=== PATIENT | male | born 1950 | race Caucasian/White ===

== ENCOUNTER 2016-09-27 12:57 | Emergency (ER) | payer MEDICARE ==
[~2016-09-27] VITALS: Ht 185.4 cm; Wt 109.9 kg
[2016-09-27] MEDS ORDERED: SODIUM CHLORIDE FLUSH 10ML SYR IVF ONE (13:30)
[2016-09-27 14:23] LABS: HEMOGLOBIN 13.5 g/dL (13.7-18.0)
[2016-09-27 14:31] LABS: BLOOD UREA NITROGEN 27 mg/dL (7-18)
[2016-09-27 15:27] VITALS: BP 131/53
== END 2016-09-27 15:34 | disposition home or self-care (01) ==
LOC: ED 15:28
DX: I82.5Z2 Chronic embolism and thrombosis of unspecified deep veins of left distal lower extremity (principal); I82.4Y1 Acute embolism and thrombosis of unspecified deep veins of right proximal lower extremity; I10 Essential (primary) hypertension; E11.9 Type 2 diabetes mellitus without complications; I51.9 Heart disease, unspecified
CPT/HCPCS: 36415; 80048; 82040; 85025; 85610; 85730; 93970

== ENCOUNTER → 2016-09-27 | Outpatient (CLI) | payer MEDICARE ==
[~2016-09-27] MED LIST: AMLO10TA2 PO; ATEN50TA41 PO; ATOR40TA78 PO; FENO48TA5 PO; HUM100VI6 SQ; LISI-170 PO; METF10002 PO; OMEP40CA6 PO; PREDNISONE
== END | disposition home or self-care (01) ==
LOC: CVU 10:57
PROVIDERS: ATTEND Nurse Practitioner Family
DX: I87.2 Venous insufficiency (chronic) (peripheral) (principal)
CPT/HCPCS: 93970

== ENCOUNTER → 2016-10-13 | Outpatient (CLI) | payer MEDICARE | END | disposition home or self-care (01) | LOC: CFH 07:08 | PROVIDERS: ATTEND Internal Medicine Gastroenterology | DX: K76.0 Fatty (change of) liver, not elsewhere classified (principal); N19 Unspecified kidney failure; E11.9 Type 2 diabetes mellitus without complications; E78.00 Pure hypercholesterolemia, unspecified; K21.9 Gastro-esophageal reflux disease without esophagitis; Z79.01 Long term (current) use of anticoagulants | CPT/HCPCS: 76700 ==

== ENCOUNTER 2017-03-02 06:52 | Observation (INO) | payer MEDICARE ==
[~2017-03-02] VITALS: Ht 182.9 cm; Wt 110.6 kg
[~2017-03-02 06:52] MED LIST changes: +BACITRACIN 50,000 UNIT ONE; +BUPIVACAINE/PF 0.5% ONE; +EPINEPHRINE 1 MG/ML, 1ML ONE; +THROMBIN 5,000 UNIT VIAL TP ONE; +VANCOMYCIN 1,000 MG ONE
[2017-03-02] MEDS ORDERED: LACTATED RINGERS 1,000 ML IV SCH (07:24)
[2017-03-02] MEDS ORDERED: LIDOCAINE 1%, 2ML ONE (07:25)
[2017-03-02] MEDS ORDERED: APIX5TAB PO (07:27)
[2017-03-02 07:29] VITALS: BP 175/78
[2017-03-02] MEDS ORDERED: LIDOCAINE 1%, 2ML SQ PRN (07:30)
[2017-03-02] MEDS ORDERED: LORazepam 2 MG/ML, 1ML IVPush STA (09:06)
[2017-03-02] MEDS ORDERED: LORazepam 2 MG/ML, 1ML ONE (09:13)
[2017-03-02] MEDS ORDERED: FENTANYL PF 100 MCG/2ML ONE ×2 (11:03)
[2017-03-02] MEDS ORDERED: MIDAZOLAM 1 MG/ML, 2ML ONE (11:03)
[2017-03-02] MEDS ORDERED: PROPOFOL 10 MG/ML, 20ML ONE (11:14)
[2017-03-02] MEDS ORDERED: CEFAZOLIN 1,000 MG ONE (11:14)
[2017-03-02] MEDS ORDERED: NEOSTIGMINE 1 MG/ML, 10ML ONE (11:14)
[2017-03-02] MEDS ORDERED: ONDANSETRON 2MG/ML, 2ML ONE (11:14)
[2017-03-02] MEDS ORDERED: ROCURONIUM 10 MG/ML ONE (11:14)
[2017-03-02] MEDS ORDERED: DEXAMETHASONE 4 MG/ML, 1ML ONE (11:14)
[2017-03-02] MEDS ORDERED: BUPIVACAINE/PF 0.5% INFIL ONE (11:46)
[2017-03-02] MEDS ORDERED: EPINEPHRINE 1 MG/ML, 1ML INFIL ONE (11:46)
[2017-03-02] MEDS ORDERED: FENTANYL PF 100 MCG/2ML IV PRN (12:00)
[2017-03-02] MEDS ORDERED: hydrALAzine 20 MG/ML, 1ML IV PRN (12:00)
[2017-03-02] MEDS ORDERED: ACETAMINOPHEN 325 MG TABLET PO PRN (12:00)
[2017-03-02] MEDS ORDERED: ONDANSETRON 2MG/ML, 2ML IVPush PRN (12:00)
[2017-03-02] MEDS ORDERED: MIDAZOLAM 1 MG/ML, 2ML IV PRN (12:00)
[2017-03-02] MEDS ORDERED: PROMETHAZINE 25 MG/ML, 1ML IV PRN (12:00)
[2017-03-02] MEDS ORDERED: OXYcodone 5 MG/5 ML ORAL.SOL UDC PO PRN (12:00)
[2017-03-02] MEDS ORDERED: HYDROmorphone 1 MG/ML, 1ML IV PRN (12:00)
[2017-03-02] MEDS ORDERED: MEPERIDINE/PF 25MG/0.5ML IVPush PRN (12:00)
[2017-03-02] MEDS ORDERED: HYDROmorphone PCA 30 MG/30 ML ONE (13:13)
[2017-03-02] MEDS ORDERED: HYDROmorphone PCA 30 MG/30 ML IV PRN (13:30)
[2017-03-02] MEDS ORDERED: LABETALOL 5MG/ML, 20ML ONE (13:57)
[2017-03-02] MEDS: LABETALOL 5MG/ML, 20ML IV PRN ×2 (13:59→14:06)
[2017-03-02] MEDS: INSULIN REGULAR 100 UNITS/ML, 3ML VIAL SQ-INSULIN SCH ×2 (14:13→14:15)
[2017-03-02] MEDS ORDERED: BISACODYL 10 MG SUPP PR PRN (15:30)
[2017-03-02] MEDS ORDERED: HYDROcodone/APAP 5/325 TABLET PO PRN (15:30)
[2017-03-02] MEDS ORDERED: morphine SULFATE 10 MG/ML, 1ML IV PRN (15:30)
[2017-03-02] MEDS ORDERED: DIPHENHYDRAMINE 50 MG/ML, 1ML IVPush PRN (15:30)
[2017-03-02] MEDS ORDERED: DIAZEPAM 5 MG/ML, 2ML IV PRN (15:30)
[2017-03-02] MEDS ORDERED: DIPHENHYDRAMINE 25 MG CAPSULE PO PRN (15:30)
[2017-03-02] MEDS ORDERED: MAGNESIUM HYDROXIDE 8%, 30ML UDC PO PRN (15:30)
[2017-03-02] MEDS ORDERED: DIAZEPAM 5 MG TABLET PO PRN (15:30)
[2017-03-02] MEDS ORDERED: ONDANSETRON 2MG/ML, 2ML IV PRN (15:30)
[2017-03-02] MEDS: NS + 20MEQ KCL 1,000 ML IV SCH (17:19)
[2017-03-02] MEDS: CEFAZOLIN PMX 1GM/50ML 50 ML IVPB SCH (18:24)
[2017-03-02] MEDS: OXYcodone/APAP 5/325MG TABLET PO PRN (20:19)
[2017-03-02 20:20] VITALS: BP 146/73
[2017-03-02] MEDS ORDERED: ATORVASTATIN 40 MG TABLET PO SCH (21:00)
[2017-03-02] MEDS: INSULIN HUMULIN 70/30, 3ML PEN SQ-INSULIN SCH (22:54)
[2017-03-03] MEDS: OXYcodone/APAP 5/325MG TABLET PO PRN ×3 (00:17→10:10)
[2017-03-03 00:32] VITALS: BP 144/69
[2017-03-03] MEDS: CEFAZOLIN PMX 1GM/50ML 50 ML IVPB SCH (03:26)
[2017-03-03] MEDS: NS + 20MEQ KCL 1,000 ML IV SCH (04:00)
[2017-03-03] MEDS ORDERED: ATENOLOL 50 MG TABLET PO SCH (06:00)
[2017-03-03] MEDS ORDERED: OMEPRAZOLE 20 MG CAPSULE.DR PO SCH (07:30)
[2017-03-03 07:44] VITALS: BP 127/65
[2017-03-03] MEDS ORDERED: metFORMIN XR 500 MG TAB.ER.24H PO SCH (08:00)
[2017-03-03] MEDS ORDERED: FENOFIBRATE 54 MG TABLET PO SCH (09:00)
[2017-03-03] MEDS ORDERED: LISINOPRIL 20 MG TABLET PO SCH (09:00)
[2017-03-03] MEDS ORDERED: SENNA/DOCUSATE TABLET PO SCH (09:00)
[2017-03-03] MEDS ORDERED: AMLODIPINE 5 MG TABLET PO SCH (09:00)
[2017-03-03] MEDS ORDERED: OXYC1TAB7 PO (09:18)
[2017-03-03] MEDS ORDERED: TIZA4TAB PO (09:18)
[2017-03-03] MEDS ORDERED: TIZANIDINE 4MG TABLET PO SCH (09:30)
[2017-03-03] MEDS: INSULIN HUMULIN 70/30, 3ML PEN SQ-INSULIN SCH (10:13)
== END 2017-03-03 14:03 | disposition home or self-care (01) ==
LOC: OUT 06:52 → 4NOR 14:48 → OUT 22:45 → 4NOR 22:46 → DCLOUNGE 03-03 13:48
PROVIDERS: ADMIT Neurological Surgery; ATTEND Neurological Surgery
DX: M48.06 Spinal stenosis, lumbar region (principal); M54.16 Radiculopathy, lumbar region; M46.90 Unspecified inflammatory spondylopathy, site unspecified; M12.9 Arthropathy, unspecified
CPT/HCPCS: 22867; 36415; 72100; 82962; 85610; 85730; 96365; 96372; 96375; 97162; 97165; C1776; G0378; J0171; J0690; J1100; J1170; J1815; J2060; J2250; J2405; J2704; J2710; J3010; J3480; J3490; J7120; J3370

== ENCOUNTER → 2017-04-08 | Outpatient (CLI) | payer MEDICARE ==
[~2017-04-08] MED LIST changes: +APIX5TAB PO; -BACITRACIN 50,000 UNIT ONE; -BUPIVACAINE/PF 0.5% ONE; -EPINEPHRINE 1 MG/ML, 1ML ONE; +OXYC1TAB7 PO; -THROMBIN 5,000 UNIT VIAL TP ONE; +TIZA4TAB PO; -VANCOMYCIN 1,000 MG ONE
== END | disposition home or self-care (01) ==
LOC: CFH 07:38
PROVIDERS: ATTEND Neurological Surgery
DX: M48.07 Spinal stenosis, lumbosacral region (principal); M47.897 Other spondylosis, lumbosacral region; M25.78 Osteophyte, vertebrae; Z98.1 Arthrodesis status
CPT/HCPCS: 72100

== ENCOUNTER 2017-10-26 14:01 | Inpatient (IN) | payer MEDICARE ==
[~2017-10-26] VITALS: Ht 182.9 cm; Wt 112.6 kg
[2017-10-26] MEDS ORDERED: SODIUM CHLORIDE FLUSH 10ML SYR IVF ONE (14:30)
[2017-10-26] MEDS ORDERED: TRAZ100T15 PO (15:01)
[2017-10-26] MEDS ORDERED: APIX5TAB PO (15:01)
[2017-10-26] MEDS ORDERED: OMEP40CA6 PO (15:02)
[2017-10-26] MEDS ORDERED: CHOL2000 PO (15:03)
[2017-10-26 15:59] LABS: BASOPHILS # (AUTO) 0.04 x10^3/uL (0-0.1); BASOPHILS % (AUTO) 1 % (0-1); EOSINOPHILS # (AUTO) 0.03 x10^3/uL (0-0.4); EOSINOPHILS % (AUTO) 0 % (1-7); LYMPHOCYTES % (AUTO) 8 % (22-44); MD NO; MEAN CORPUSCULAR HEMOGLOBIN 31.3 pg (27.5-34.5); MEAN CORPUSCULAR HGB CONC 34.4 g/dL (33.2-36.2); MEAN CORPUSCULAR VOLUME 91.3 fL (81-97); MONOCYTES # (AUTO) 0.47 x10^3/uL (0.2-0.8); MONOCYTES % (AUTO) 6 % (2-9); NEUTROPHILS # (AUTO) 7.35 x10^3/uL (1.8-6.8); NEUTROPHILS % (AUTO) 86 % (42-75); PLATELET COUNT 171 x10^3/uL (130-400); RED BLOOD COUNT 4.66 x10^6/uL (4.38-5.82); RED CELL DISTRIBUTION WIDTH 13.9 % (9.4-14.8)
[2017-10-26 16:02] LABS: INTERNATIONAL NORMALIZED RATIO 1.06 (0.93-1.1)
[2017-10-26 16:06] LABS: ALBUMIN 3.9 g/dL (3.4-5.0); ANION GAP 6 mmol/L (5-15); CALCIUM 8.6 mg/dL (8.5-10.1); CHLORIDE 109 mmol/L (98-107)
[2017-10-26 16:13] LABS: ALANINE AMINOTRANSFERASE 75 U/L (12-78); ALKALINE PHOSPHATASE 40 U/L (45-117); BILIRUBIN,TOTAL 0.6 mg/dL (0.2-1.0); CREATININE 1.99 mg/dL (0.7-1.3); TOTAL PROTEIN 7.5 g/dL (6.4-8.2); TROPONIN I 0.087 ng/mL (0.000-0.045)
[2017-10-26] MEDS: SODIUM CHLORIDE 0.9% 1,000 ML IV SCH ×2 (17:10→21:38)
[2017-10-26] MEDS ORDERED: GADOBUTROL 10 MMOL/10 ML PFS ONE (17:28)
[2017-10-26] MEDS ORDERED: ONDANSETRON 2MG/ML, 2ML IVPush PRN (17:30)
[2017-10-26] MEDS ORDERED: HEPARIN 5,000 UNITS/ML, 1ML SQ SCH (17:30)
[2017-10-26] MEDS ORDERED: NITROGLYCERIN 0.4 MG BOTTLE (25 TABS) SL PRN (17:30)
[2017-10-26] MEDS ORDERED: LABETALOL 5MG/ML, 20ML IVPush PRN (17:30)
[2017-10-26 17:47] LABS: FREE T4 (FREE THYROXINE) 0.94 ng/dL (0.76-1.46)
[2017-10-26] MEDS ORDERED: OXYcodone/APAP 5/325MG TABLET PO PRN (18:00)
[2017-10-26] MEDS ORDERED: DEXTROSE 50%, 50ML SYRINGE IVPush PRN (18:30)
[2017-10-26] MEDS ORDERED: LEVETIRACETAM 100 MG/ML, 5ML IV SCH (18:30)
[2017-10-26] MEDS ORDERED: ASPIRIN 81 MG TABLET EC PO SCH (18:30)
[2017-10-26] MEDS ORDERED: GLUCAGON 1 MG IM PRN (18:30)
[2017-10-26] MEDS ORDERED: DEXTROSE 4 GM TAB.CHEW PO PRN (18:30)
[2017-10-26 18:54] LABS: HEMOGLOBIN A1C 7.6 % (4.2-6.3)
[2017-10-26 19:02] LABS: CHOL/HDL RATIO 6.7; LDL/HDL RATIO 2.4 (0.5-3.0)
[2017-10-26 19:31] LABS: TROPONIN I 0.224 ng/mL (0.000-0.045)
[2017-10-26 19:40] LABS: MICROSCOPIC AUTO
[2017-10-26 19:42] LABS: CULTURE INDICATED? NO
[2017-10-26] MEDS ORDERED: ASPIRIN 81 MG TABLET EC PO ONE (21:00)
[2017-10-26] MEDS: INSULIN LISPRO 100 UNITS/ML, PEN SQ-INSULIN SCH (21:00)
[2017-10-26] MEDS ORDERED: ATORVASTATIN 40 MG TABLET PO SCH (21:00)
[2017-10-26] MEDS ORDERED: ATORVASTATIN 80 MG TABLET PO SCH (21:00)
[2017-10-26] MEDS: APIXABAN 5 MG TABLET PO SCH (21:36)
[2017-10-26] MEDS: SODIUM CHLORIDE FLUSH 10ML SYR IVF SCH (21:36)
[2017-10-26 22:11] VITALS: BP 147/74
[2017-10-26] MEDS ORDERED: PNEUMOCOCCAL 23 VACCINE IM-VACC ONE (22:30)
[2017-10-26] MEDS: LEVETIRACETAM 750 MG in SODIUM CHLORIDE 0.9% 100 ML IV SCH (22:45)
[2017-10-27 01:17] VITALS: BP 112/59
[2017-10-27 01:47] LABS: TROPONIN I 0.728 ng/mL (0.000-0.045)
[2017-10-27] MEDS: SODIUM CHLORIDE 0.9% 1,000 ML IV SCH ×3 (03:10→11:49)
[2017-10-27] MEDS ORDERED: ASPIRIN 325 MG TABLET PO SCH (06:00)
[2017-10-27] MEDS: INSULIN LISPRO 100 UNITS/ML, PEN SQ-INSULIN SCH ×2 (07:00→11:00)
[2017-10-27 07:38] LABS: BASOPHILS # (AUTO) 0.06 x10^3/uL (0-0.1); BASOPHILS % (AUTO) 1 % (0-1); EOSINOPHILS # (AUTO) 0.05 x10^3/uL (0-0.4); EOSINOPHILS % (AUTO) 1 % (1-7); LYMPHOCYTES # (AUTO) 1.62 x10^3/uL (1-3.4); LYMPHOCYTES % (AUTO) 24 % (22-44); MD NO; MEAN CORPUSCULAR HEMOGLOBIN 31.2 pg (27.5-34.5); MEAN CORPUSCULAR HGB CONC 33.9 g/dL (33.2-36.2); MEAN CORPUSCULAR VOLUME 92.2 fL (81-97); MEAN PLATELET VOLUME 9.1 fL (7.4-10.4); MONOCYTES % (AUTO) 10 % (2-9); NEUTROPHILS # (AUTO) 4.31 x10^3/uL (1.8-6.8); NEUTROPHILS % (AUTO) 64 % (42-75); PLATELET COUNT 143 x10^3/uL (130-400); RED BLOOD COUNT 4.13 x10^6/uL (4.38-5.82); RED CELL DISTRIBUTION WIDTH 14.1 % (9.4-14.8)
[2017-10-27 07:49] LABS: ALANINE AMINOTRANSFERASE 61 U/L (12-78); ALBUMIN 3.4 g/dL (3.4-5.0); ANION GAP 4 mmol/L (5-15); CALCIUM 7.9 mg/dL (8.5-10.1); CHLORIDE 110 mmol/L (98-107); CREATININE 2.48 mg/dL (0.7-1.3)
[2017-10-27 07:59] LABS: ALKALINE PHOSPHATASE 32 U/L (45-117); BILIRUBIN,TOTAL 0.6 mg/dL (0.2-1.0); THYROID STIMULATING HORMONE 0.775 mIU/L (0.358-3.740); TOTAL PROTEIN 6.4 g/dL (6.4-8.2)
[2017-10-27] MEDS ORDERED: FENOFIBRATE 54 MG TABLET PO SCH (09:00)
[2017-10-27] MEDS ORDERED: ATENOLOL 50 MG TABLET PO SCH (09:00)
[2017-10-27] MEDS ORDERED: AMLODIPINE 5 MG TABLET PO SCH (09:00)
[2017-10-27] MEDS ORDERED: CHOLECALCIFEROL 1,000 UNIT TABLET PO SCH (09:00)
[2017-10-27] MEDS ORDERED: OMEPRAZOLE 20 MG CAPSULE.DR PO SCH (09:00)
[2017-10-27] MEDS ORDERED: LISINOPRIL 20 MG TABLET PO SCH (09:00)
[2017-10-27 09:27] VITALS: BP 117/61
[2017-10-27] MEDS: LEVETIRACETAM 750 MG in SODIUM CHLORIDE 0.9% 100 ML IV SCH (09:40)
[2017-10-27] MEDS: SODIUM CHLORIDE FLUSH 10ML SYR IVF SCH (09:41)
[2017-10-27] MEDS: APIXABAN 5 MG TABLET PO SCH (09:41)
[2017-10-27] MEDS ORDERED: LEVE750T37 PO (13:19)
[2017-10-27 14:06] VITALS: BP 134/72
== END 2017-10-27 16:04 | disposition home or self-care (01) | DRG 101 ==
LOC: ED 15:37 → EDIP 16:31 → 5SO 20:29 → DCLOUNGE 10-27 15:54
PROVIDERS: ADMIT Internal Medicine; ATTEND Hospitalist
DX: G40.209 Localization-related (focal) (partial) symptomatic epilepsy and epileptic syndromes with complex partial seizures, not intractable, without status epilepticus (principal); N17.9 Acute kidney failure, unspecified; E87.2 Acidosis; E11.22 Type 2 diabetes mellitus with diabetic chronic kidney disease; F05 Delirium due to known physiological condition; I24.8 Other forms of acute ischemic heart disease; W18.39XA Other fall on same level, initial encounter; I12.9 Hypertensive chronic kidney disease with stage 1 through stage 4 chronic kidney disease, or unspecified chronic kidney disease; E78.5 Hyperlipidemia, unspecified; I25.10 Atherosclerotic heart disease of native coronary artery without angina pectoris; I25.2 Old myocardial infarction; K21.9 Gastro-esophageal reflux disease without esophagitis; M19.011 Primary osteoarthritis, right shoulder; N18.3 Chronic kidney disease, stage 3 (moderate); R29.810 Facial weakness; R32 Unspecified urinary incontinence; S49.91XA Unspecified injury of right shoulder and upper arm, initial encounter; Y93.89 Activity, other specified; Y92.89 Other specified places as the place of occurrence of the external cause; Y99.8 Other external cause status; S89.91XA Unspecified injury of right lower leg, initial encounter; Z95.5 Presence of coronary angioplasty implant and graft; Z86.718 Personal history of other venous thrombosis and embolism; Z79.899 Other long term (current) drug therapy; Z79.4 Long term (current) use of insulin
CPT/HCPCS: 36415; 70450; 70553; 71045; 80053; 80061; 81001; 82550; 82607; 82962; 83036; 83605; 83735; 84100; 84439; 84443; 84484; 85025; 85610; 87040; 90732; 93005; 95819; 99285; A9585; J1953; J1815; J7030

== ENCOUNTER → 2018-08-15 | Outpatient (CLI) | payer MEDICARE ==
[~2018-08-15] MED LIST changes: -AMLO10TA2 PO; +AMLO10TA8 PO; +CHOL2000 PO; +LEVE750T37 PO; +REGADENOSON 0.4 MG/5 ML SYRINGE ONE; +TRAZ-137 PO
== END | disposition home or self-care (01) ==
LOC: CFH 07:49
PROVIDERS: ATTEND Internal Medicine Cardiovascular Disease
DX: I35.8 Other nonrheumatic aortic valve disorders (principal); I25.10 Atherosclerotic heart disease of native coronary artery without angina pectoris; I10 Essential (primary) hypertension; E78.5 Hyperlipidemia, unspecified; E11.9 Type 2 diabetes mellitus without complications; Z95.9 Presence of cardiac and vascular implant and graft, unspecified
CPT/HCPCS: 78452; 93017; 93306; A9502; J2785

== ENCOUNTER 2020-04-15 15:25 | Emergency (ER) | payer MEDICARE ==
[~2020-04-15] VITALS: Ht 182.9 cm; Wt 105.3 kg
[~2020-04-15 15:25] MED LIST changes: +FENO48TA10 PO; -FENO48TA5 PO; +OMEP40CA42 PO; -OMEP40CA6 PO; -REGADENOSON 0.4 MG/5 ML SYRINGE ONE; -TIZA4TAB PO; +TIZA4TAB2 PO; -TRAZ-137 PO; +TRAZ-175 PO
[2020-04-15 15:38] VITALS: BP 90/47
[2020-04-15 16:25] LABS: BASOPHILS % (AUTO) 1 % (0-1); EOSINOPHILS % (AUTO) 2 % (1-7); LYMPHOCYTES % (AUTO) 23 % (22-44); MEAN CORPUSCULAR HEMOGLOBIN 31.3 pg (27.5-34.5); MEAN CORPUSCULAR HGB CONC 33.7 g/dL (33.2-36.2); MEAN PLATELET VOLUME 9.8 fL (7.4-10.4); MONOCYTES % (AUTO) 9 % (2-9); NEUTROPHILS % (AUTO) 66 % (42-75); PLATELET COUNT 166 x10^3/uL (130-400); RED BLOOD COUNT 4.68 x10^6/uL (4.38-5.82); RED CELL DISTRIBUTION WIDTH 13.5 % (9.4-14.8)
[2020-04-15 16:27] LABS: ALBUMIN 4.1 g/dL (3.4-5.0); ANION GAP 2 mmol/L (5-15); CALCIUM 9.6 mg/dL (8.5-10.1); CHLORIDE 105 mmol/L (98-107)
[2020-04-15 16:30] LABS: ALANINE AMINOTRANSFERASE 67 U/L (12-78); ALKALINE PHOSPHATASE 41 U/L (45-117); BILIRUBIN,TOTAL 0.7 mg/dL (0.2-1.0); CREATININE 3.41 mg/dL (0.7-1.3); TOTAL PROTEIN 7.4 g/dL (6.4-8.2)
[2020-04-15 16:33] LABS: MD NO
--- NOTE | 2020-04-15 18:44 | NUR ---
attempted to call pt from lobby to triage to update vs. pt nil x 1.
--- NOTE | 2020-04-15 19:15 | NUR ---
not in lobby
--- NOTE | 2020-04-15 19:30 | NUR ---
pt to room from lobby
== END 2020-04-15 19:43 | disposition other institution (70) ==
LOC: ED 19:37
DX: R53.1 Weakness (principal); R42 Dizziness and giddiness; R94.31 Abnormal electrocardiogram [ECG] [EKG]
CPT/HCPCS: 36415; 80053; 85025; 93005; 99284

== ENCOUNTER → 2020-04-25 | Outpatient (CLI) | payer MEDICARE, OTHER ==
[~2020-04-25] MED LIST changes: +AMLO-211 PO; -AMLO10TA8 PO; +REGADENOSON 0.4 MG/5 ML SYRINGE ONE
== END | disposition home or self-care (01) ==
LOC: CFH 08:31
PROVIDERS: ATTEND Registered Nurse
DX: I10 Essential (primary) hypertension (principal); I25.10 Atherosclerotic heart disease of native coronary artery without angina pectoris
CPT/HCPCS: 78452; 93017; A9502; J2785

== ENCOUNTER 2021-03-05 09:34 | Emergency (ER) | payer MEDICARE ==
[~2021-03-05] VITALS: Ht 180.3 cm; Wt 109.1 kg
[~2021-03-05 09:34] MED LIST changes: -OMEP40CA42 PO; +OMEP40CA8 PO; -REGADENOSON 0.4 MG/5 ML SYRINGE ONE
[2021-03-05 10:10] LABS: BASOPHILS % (AUTO) 1 % (0-1); EOSINOPHILS % (AUTO) 9 % (1-7); LYMPHOCYTES % (AUTO) 36 % (22-44); MEAN CORPUSCULAR HEMOGLOBIN 31.9 pg (27.5-34.5); MEAN CORPUSCULAR HGB CONC 34.3 g/dL (33.2-36.2); MEAN PLATELET VOLUME 8.8 fL (7.4-10.4); MONOCYTES % (AUTO) 11 % (2-9); NEUTROPHILS % (AUTO) 43 % (42-75); PLATELET COUNT 162 x10^3/uL (130-400); RED BLOOD COUNT 4.54 x10^6/uL (4.38-5.82); RED CELL DISTRIBUTION WIDTH 13.4 % (9.4-14.8)
[2021-03-05 10:22] LABS: ALBUMIN 3.7 g/dL (3.4-5.0); ANION GAP 9 mmol/L (5-15); CALCIUM 8.8 mg/dL (8.5-10.1); CHLORIDE 103 mmol/L (98-107)
[2021-03-05 10:28] LABS: ALANINE AMINOTRANSFERASE 48 U/L (12-78); ALKALINE PHOSPHATASE 39 U/L (45-117); BILIRUBIN,TOTAL 0.5 mg/dL (0.2-1.0); CREATININE 2.26 mg/dL (0.7-1.3); TOTAL PROTEIN 7.5 g/dL (6.4-8.2); TROPONIN I < 0.015 ng/mL (0.000-0.045)
--- NOTE | 2021-03-05 12:18 | NUR ---
TO ROOM FROM LOBBY. NAD.
--- NOTE | 2021-03-05 12:43 | NUR ---
FIRST CONTACT: PT POSTIONED TO COMFORT IN BED AND ATTACHED TO MONITORS. VSS. BARNEY.
[2021-03-05] MEDS ORDERED: MORPHINE SULFATE 4 MG/ML, 1ML ONE (14:23)
[2021-03-05] MEDS ORDERED: ONDANSETRON 2MG/ML, 2ML ONE (14:23)
[2021-03-05 15:02] VITALS: BP 138/90
== END 2021-03-05 15:06 | disposition home or self-care (01) ==
LOC: ED 14:55
DX: I12.9 Hypertensive chronic kidney disease with stage 1 through stage 4 chronic kidney disease, or unspecified chronic kidney disease (principal); R07.89 Other chest pain; N18.30 Chronic kidney disease, stage 3 unspecified; R00.1 Bradycardia, unspecified; E78.5 Hyperlipidemia, unspecified; I25.2 Old myocardial infarction; E11.22 Type 2 diabetes mellitus with diabetic chronic kidney disease; I25.10 Atherosclerotic heart disease of native coronary artery without angina pectoris; G40.909 Epilepsy, unspecified, not intractable, without status epilepticus; Z86.718 Personal history of other venous thrombosis and embolism; Z98.61 Coronary angioplasty status
CPT/HCPCS: 36415; 71045; 80053; 84484; 85025; 93005; 99285